=== PATIENT | female | born 1945 | race African-American/Black ===

== ENCOUNTER 2018-12-23 03:19 | Inpatient (IN) | payer MEDICARE, MEDICAID ==
[~2018-12-23] VITALS: Ht 152.4 cm; Wt 120.1 kg
[2018-12-23] MEDS ORDERED: IPRATROPIUM BROM 0.5 MG/2.5ML INH SOL NEB ONE ×2 (05:00→09:00)
[2018-12-23] MEDS ORDERED: ALBUTEROL SULF 2.5 MG/0.5ML(0.5%) NEB SOLN NEB ONE ×2 (05:00→09:00)
[2018-12-23] MEDS ORDERED: SODIUM CHLORIDE 0.9% 1,000 ML IV ONE (05:00)
[2018-12-23] MEDS ORDERED: methylPREDNISolone SOD SUCC 125 MG/2 ML VL IV ONE (05:00)
[2018-12-23] MEDS ORDERED: LEVOFLOXACIN 750MG 150 ML IV ONE (05:00)
[2018-12-23 05:02] LABS: White Blood Cell 7.5 10^3/uL (4.4-10.8)
[2018-12-23 05:04] LABS: Hematocrit 37.6 % (36.0-46.0); Hemoglobin 11.8 g/dL (12.2-16.2); Mean Corpuscular Hemoglobin 23.8 pg (28.0-32.0); Mean Corpuscular Hgb Conc. 31.2 g/dL (32.0-36.0); Mean Corpuscular Volume 76.3 fL (80.0-100.0); Platelet Count (auto) 259 10^3/uL (140-450); Red Blood Cells 4.93 10^6/uL (4.0-5.20); Red Cell Distribution Width 15.9 % (11.8-14.3)
[2018-12-23 05:07] LABS: Basophils % (manual) 0 (0.0-2.0); Blast Cells 0; Metamyelocytes % 0; Myelocytes % 0; Promyelocytes % 0; Reactive Lymphocytes 0
[2018-12-23 05:17] LABS: Partial Thromboplastin Time 28.7 sec (23.64-32.05)
[2018-12-23 05:21] LABS: Alanine Aminotransferase 14 U/L (13-56); Albumin 3.5 g/dL (3.4-5.0); Anion Gap 7 (5-15); Aspartate Aminotransferase 15 U/L (15-37); Blood Urea Nitrogen 11 mg/dL (7-18); Calcium 8.8 mg/dL (8.5-10.1); Carbon Dioxide 25 mmol/L (21-32); Chloride 111 mmol/L (98-107); Glucose 109 mg/dL (74-106); Potassium 3.7 mmol/L (3.5-5.1); Sodium 143 mmol/L (136-145)
[2018-12-23 05:26] LABS: Alkaline Phosphatase 76 U/L (45-117); BUN/Creatinine Ratio 13.3; Bilirubin, Total 0.3 mg/dL (0.2-1.0); GFR African American 87 mL/min; GFR Non-African American 72 mL/min; Total Protein 7.5 g/dL (6.4-8.2)
[2018-12-23 05:37] LABS: Band Neutrophils % (manual) 2; Eosinophils % (manual) 9 (0-7); Lymphocytes % (manual) 36 (10.0-50.0); Monocytes % (manual) 8 (0-12)
[2018-12-23] MEDS ORDERED: DOCUSATE SOD 100 MG CAP PO PRN (09:00)
[2018-12-23] MEDS ORDERED: MORPHINE SULF INJ 2 MG/ML SYRINGE 1ML IV PRN (09:00)
[2018-12-23] MEDS ORDERED: ONDANSETRON HCL 4 MG/2 ML VIAL IV PRN (09:00)
[2018-12-23] MEDS ORDERED: TEMAZEPAM 15 MG CAP PO PRN (09:00)
[2018-12-23] MEDS ORDERED: LACTULOSE 20Gm/30ML SOLN PO PRN (09:30)
[2018-12-23] MEDS: DOXYCYCLINE 100MG/250ML 250 ML IV SCH ×2 (09:46→21:06)
[2018-12-23] MEDS: LORazepam 0.5 MG TAB PO PRN (09:46)
[2018-12-23 10:02] LABS: Urine Bacteria FEW /hpf (None Seen); Urine Blood Negative /uL (Negative); Urine Mucus FEW (None Seen); Urine Specific Gravity 1.022 (1.001-1.035); Urine WBC 1 /hpf (0 - 5)
[2018-12-23] MEDS: amLODIPine BESYLATE 5 MG TAB PO SCH (10:11)
[2018-12-23] MEDS: ENOXAPARIN SOD 40 MG/0.4 ML SYRINGE SC SCH (10:11)
[2018-12-23] MEDS: IPRATROPIUM BROM 0.5 MG/2.5ML INH SOL NEB SCH ×2 (12:00→18:25)
[2018-12-23] MEDS: ALBUTEROL SULF 2.5 MG/0.5ML(0.5%) NEB SOLN NEB SCH ×2 (12:00→18:25)
[2018-12-23 13:38] VITALS: BP 140/88
[2018-12-23] MEDS ORDERED: IPRATROPIUM BROM 0.5 MG/2.5ML INH SOL NEB SCH (14:00)
[2018-12-23] MEDS ORDERED: ALBUTEROL SULF 2.5 MG/0.5ML(0.5%) NEB SOLN NEB SCH (14:00)
[2018-12-23] MEDS: methylPREDNISolone SOD SUCC 40 MG/ML VL IV SCH ×2 (14:10→21:06)
[2018-12-23] MEDS: ALBUTEROL SULF 2.5 MG/0.5ML(0.5%) NEB SOLN NEB PRN ×2 (14:38→21:30)
[2018-12-23 16:40] VITALS: BP 128/87
--- NOTE | 2018-12-23 16:40 | NUR ---
Telemetry admit from ER RONNIE GALLEGOS admitted to Telemetry unit after SBAR received. Patient oriented to CHRIS jack RN, unit, room, bed, and unit policies regarding patient care and visiting hours. The patient is A&Ox4, no signs or symptoms of distress. Patient now on continuous telemetry monitoring, tele box # 15 and telemetry reading on arrival to unit is SINUS TACH @ 105 BPM. Patient placed on bedside oxygen 4L via nasal cannula, weighed by bedscale and encouraged to call if they need something. The patient stated that she has had this type of episode before, during this same time last year, while living with family. The patient had been exposed to fungus growing in her family members bathroom, for which the house had to be vacated and gutted. Notified the patient that I would inform the physician in charge of her care. Educated the patient on POC and use of call light. All questions and concerns addressed, patient verbalized understanding. The patient's call light is within reach and the bed is in the lowest, locked position. Will round hourly and continue to monitor.
[2018-12-23] MEDS: PROMETHAZINE W/CODEINE 5 ML ORAL SYRUP PO PRN ×2 (17:01→21:05)
[2018-12-23 17:11] VITALS: BP 128/87
--- NOTE | 2018-12-23 19:20 | NUR ---
Opening Shift Note Assumed care of patient, awake and alert x4. No S/S of distress/SOB or pain. Patient stated she just received a breathing treatment and feels okay for now. Call light is within reach, bed is in lowest position, side rails up x2. Instructed on POC and to call for assist PRN. All questions and concerns answered, will continue to monitor for changes Q1hr and PRN.
[2018-12-23 22:41] VITALS: BP 102/66
[2018-12-24] MEDS: IPRATROPIUM BROM 0.5 MG/2.5ML INH SOL NEB SCH ×5 (00:22→22:15)
[2018-12-24] MEDS: ALBUTEROL SULF 2.5 MG/0.5ML(0.5%) NEB SOLN NEB SCH ×5 (00:22→22:15)
[2018-12-24 05:30] VITALS: BP 122/74
[2018-12-24] MEDS: methylPREDNISolone SOD SUCC 40 MG/ML VL IV SCH ×3 (05:44→20:52)
[2018-12-24] MEDS: ACETAMINOPHEN 500 MG TAB PO PRN (05:50)
[2018-12-24 06:30] LABS: Basophils # (auto) 0 uL; Basophils % (auto) 0.2 % (0.0-2.0); Eosinophils # (auto) 0 uL; Hematocrit 35.1 % (36.0-46.0); Hemoglobin 11.2 g/dL (12.2-16.2); Lymphocytes # (auto) 1.2 uL; Lymphocytes % (auto) 14.8 % (10.0-50.0); Mean Corpuscular Hgb Conc. 31.8 g/dL (32.0-36.0); Mean Corpuscular Volume 75.6 fL (80.0-100.0); Monocytes # (auto) 0.2 uL; Monocytes % (auto) 2.3 % (0.0-12.0); Neutrophils # (auto) 6.6 uL; Neutrophils % (auto) 82.7 % (37.0-80.0); Nucleated Red Blood Cells % 0.1 %; Platelet Count (auto) 279 10^3/uL (140-450); Red Blood Cells 4.65 10^6/uL (4.0-5.20)
[2018-12-24 06:35] LABS: BUN/Creatinine Ratio 19.5; Potassium 4.6 mmol/L (3.5-5.1)
[2018-12-24] MEDS: PROMETHAZINE W/CODEINE 5 ML ORAL SYRUP PO PRN ×3 (07:59→20:53)
[2018-12-24] MEDS: HYDROcodone-ACET 5/325MG TAB PO PRN ×2 (07:59→22:44)
[2018-12-24 08:00] VITALS: BP 128/87
[2018-12-24 09:03] VITALS: BP 128/88
[2018-12-24] MEDS: DOXYCYCLINE 100MG/250ML 250 ML IV SCH ×2 (09:42→20:53)
[2018-12-24] MEDS: ENOXAPARIN SOD 40 MG/0.4 ML SYRINGE SC SCH (09:42)
[2018-12-24] MEDS: amLODIPine BESYLATE 5 MG TAB PO SCH (09:42)
[2018-12-24] MEDS: ALBUTEROL SULF 2.5 MG/0.5ML(0.5%) NEB SOLN NEB PRN (10:28)
[2018-12-24 13:00] VITALS: BP 103/60
[2018-12-24 16:59] VITALS: BP 116/67
--- NOTE | 2018-12-24 19:20 | NUR ---
Opening Shift Note Assumed care of patient, awake and alert x4. No S/S of distress/SOB or pain. She is receiving oxygen at 2 L/min via nasal cannula with a humidifer, a bedside commode is at bedside. Call light is within reach, side rails up x2, bed is in lowest position. Instructed on POC and to call for assist PRN. All questions and concerns answered, will continue to monitor for changes Q1hr and PRN.
[2018-12-24 22:58] VITALS: BP 118/83
[2018-12-25] MEDS: PROMETHAZINE W/CODEINE 5 ML ORAL SYRUP PO PRN ×4 (02:14→18:55)
[2018-12-25] MEDS: ALBUTEROL SULF 2.5 MG/0.5ML(0.5%) NEB SOLN NEB SCH ×6 (02:15→22:29)
[2018-12-25] MEDS: IPRATROPIUM BROM 0.5 MG/2.5ML INH SOL NEB SCH ×6 (02:15→22:30)
[2018-12-25 05:22] VITALS: BP 113/73
[2018-12-25] MEDS: methylPREDNISolone SOD SUCC 40 MG/ML VL IV SCH ×3 (05:40→22:51)
[2018-12-25 06:13] LABS: Basophils # (auto) 0 uL; Eosinophils # (auto) 0 uL; Nucleated Red Blood Cells % 0.1 %
[2018-12-25 06:15] LABS: Basophils % (auto) 0.2 % (0.0-2.0); Hematocrit 37.4 % (36.0-46.0); Hemoglobin 11.5 g/dL (12.2-16.2); Lymphocytes % (auto) 8.9 % (10.0-50.0); Mean Corpuscular Hemoglobin 23.4 pg (28.0-32.0); Mean Corpuscular Hgb Conc. 30.8 g/dL (32.0-36.0); Monocytes # (auto) 0.3 uL; Monocytes % (auto) 2.7 % (0.0-12.0); Neutrophils % (auto) 88.2 % (37.0-80.0); Platelet Count (auto) 288 10^3/uL (140-450); Red Blood Cells 4.92 10^6/uL (4.0-5.20); Red Cell Distribution Width 16.4 % (11.8-14.3); White Blood Cell 11.3 10^3/uL (4.4-10.8)
[2018-12-25 06:44] LABS: Albumin 3.1 g/dL (3.4-5.0); Calcium 9.2 mg/dL (8.5-10.1); Potassium 4.2 mmol/L (3.5-5.1)
[2018-12-25 06:48] LABS: BUN/Creatinine Ratio 22.5; Bilirubin, Total 0.2 mg/dL (0.2-1.0); Total Protein 7.2 g/dL (6.4-8.2)
--- NOTE | 2018-12-25 07:00 | NUR ---
Opening Shift Note Assumed care of the patient from the maintenance technician 3rd shift RN. The patient is A&Ox4, no signs or symptoms of distress. Educated the patient on POC and patient verbalized understanding. The patient's call light is within reach and bed is in the lowest, locked position. Will round hourly and continue to monitor.
[2018-12-25 08:00] VITALS: BP 144/103
[2018-12-25 09:15] VITALS: BP 134/96
[2018-12-25] MEDS: amLODIPine BESYLATE 5 MG TAB PO SCH (10:57)
[2018-12-25] MEDS: DOXYCYCLINE 100MG/250ML 250 ML IV SCH ×2 (10:57→20:59)
[2018-12-25] MEDS: ENOXAPARIN SOD 40 MG/0.4 ML SYRINGE SC SCH (10:58)
[2018-12-25 13:00] VITALS: BP 116/85
--- NOTE | 2018-12-25 15:41 | NUR ---
RESPIRATORY CULTURE SENT
[2018-12-25] MEDS: ALBUTEROL SULF 2.5 MG/0.5ML(0.5%) NEB SOLN NEB PRN (15:42)
[2018-12-25 17:05] VITALS: BP 111/79
[2018-12-25] MEDS: BUDESONIDE (INHALATION) 0.5 MG/2 ML NEB NEB SCH (18:23)
--- NOTE | 2018-12-25 19:35 | NUR ---
Opening Shift Note Assumed care of patient, awake and alert. No complains of pain, patient on O2 at 4 LPM via nasal cannula, 02 sat at 94%. Instructed on POC and to call for assist PRN, will continue to monitor for changes Q1hr and PRN.
[2018-12-25 22:30] VITALS: BP 132/82
[2018-12-25] MEDS: LORazepam 0.5 MG TAB PO PRN (22:51)
[2018-12-26] MEDS: PROMETHAZINE W/CODEINE 5 ML ORAL SYRUP PO PRN ×3 (02:22→22:53)
[2018-12-26] MEDS: IPRATROPIUM BROM 0.5 MG/2.5ML INH SOL NEB SCH ×6 (02:30→22:54)
[2018-12-26] MEDS: ALBUTEROL SULF 2.5 MG/0.5ML(0.5%) NEB SOLN NEB SCH ×6 (02:30→22:55)
[2018-12-26 05:51] VITALS: BP 134/91
[2018-12-26] MEDS: methylPREDNISolone SOD SUCC 40 MG/ML VL IV SCH ×3 (06:05→21:51)
--- NOTE | 2018-12-26 08:00 | NUR ---
Opening Shift Note Assumed care of patient, awake and alert. No S/S of pain. Audible wheezing, SOB with exertion reported. Instructed on POC and to call for assist PRN, will continue to monitor for changes Q1hr and PRN.
[2018-12-26 09:00] VITALS: BP 132/92
[2018-12-26] MEDS: DOXYCYCLINE 100MG/250ML 250 ML IV SCH ×2 (09:37→21:09)
[2018-12-26] MEDS: amLODIPine BESYLATE 5 MG TAB PO SCH (09:37)
[2018-12-26] MEDS: ENOXAPARIN SOD 40 MG/0.4 ML SYRINGE SC SCH (09:38)
[2018-12-26] MEDS: BUDESONIDE (INHALATION) 0.5 MG/2 ML NEB NEB SCH ×2 (10:03→18:58)
[2018-12-26 13:00] VITALS: BP 104/70
--- NOTE | 2018-12-26 15:36 | NUR ---
Nutrition Assessment Notes please see attached link for complete assessment Est. Needs ABW (71 kg): 0948-5400 kcal (17-20 kcal/kgBW), 71-78 gms pro (1.0-1.1 gms/kgBW). Will continue to monitor pertinent labs and reassess nutrient need prn Addendum: 12/26/18 at [address] Amended: Links added.
[2018-12-26 17:00] VITALS: BP 111/85
--- NOTE | 2018-12-26 18:00 | NUR ---
Improved breathing Patient had Solumedrol this afternoon; reports improved SOB. She said it is easier for her to get to the bathroom and back. Audible wheeze from earlier has significantly decreased at this time.
[2018-12-26] MEDS: ACETAMINOPHEN 500 MG TAB PO PRN (20:04)
[2018-12-26 22:05] VITALS: BP 115/75
[2018-12-27] MEDS: IPRATROPIUM BROM 0.5 MG/2.5ML INH SOL NEB SCH ×6 (02:14→22:13)
[2018-12-27] MEDS: ALBUTEROL SULF 2.5 MG/0.5ML(0.5%) NEB SOLN NEB SCH ×6 (02:14→22:13)
[2018-12-27 05:43] VITALS: BP 138/91
[2018-12-27 05:49] LABS: Basophils # (auto) 0 uL; Basophils % (auto) 0.3 % (0.0-2.0); Eosinophils # (auto) 0 uL; Hemoglobin 11.6 g/dL (12.2-16.2); Lymphocytes # (auto) 1.6 uL; Lymphocytes % (auto) 18.8 % (10.0-50.0); Mean Corpuscular Hemoglobin 23.6 pg (28.0-32.0); Mean Corpuscular Hgb Conc. 31.5 g/dL (32.0-36.0); Mean Corpuscular Volume 74.8 fL (80.0-100.0); Monocytes # (auto) 0.5 uL; Monocytes % (auto) 6.2 % (0.0-12.0); Neutrophils # (auto) 6.3 uL; Neutrophils % (auto) 74.7 % (37.0-80.0); Nucleated Red Blood Cells % 0.3 %; Platelet Count (auto) 287 10^3/uL (140-450); Red Blood Cells 4.94 10^6/uL (4.0-5.20); Red Cell Distribution Width 15.9 % (11.8-14.3); White Blood Cell 8.5 10^3/uL (4.4-10.8)
[2018-12-27] MEDS: methylPREDNISolone SOD SUCC 40 MG/ML VL IV SCH ×3 (06:14→22:13)
[2018-12-27] MEDS: BUDESONIDE (INHALATION) 0.5 MG/2 ML NEB NEB SCH ×2 (06:22→22:13)
[2018-12-27 06:28] LABS: Potassium 4.2 mmol/L (3.5-5.1)
[2018-12-27 06:32] LABS: BUN/Creatinine Ratio 32.9; Magnesium 2.1 mg/dL (1.6-2.6)
--- NOTE | 2018-12-27 08:00 | NUR ---
Opening Shift Note Assumed care of patient, awake, alert, and oriented x4. No S/S of distress/SOB or pain. IV is in left hand 20 gauge and is asymptomatic, intact, patent, and saline locked. IV is in right forearm 22 gauge and is asymptomatic, intact, patent, and saline locked. Bed is locked and in lowest position and call light is within reach. Instructed on POC and to call for assist PRN, and patient verbalized understanding. Will continue to monitor for changes Q1hr and PRN.
[2018-12-27 09:00] VITALS: BP_SYST 123; BP_SYST 124; BP_DIAS 88; BP_DIAS 89
[2018-12-27] MEDS ORDERED: ADENOSINE 82 MG in GIVE UN-DILUTED 0 ML IV ONE (09:00)
--- NOTE | 2018-12-27 09:30 | NUR ---
Patient taken down to stress lab via wheelchair. No distress noted at time of departure.
[2018-12-27] MEDS: DOXYCYCLINE 100MG/250ML 250 ML IV SCH ×2 (09:34→22:13)
--- NOTE | 2018-12-27 09:50 | NUR ---
Patient returned from stress lab via wheelchair. No distress noted at time of arrival.
[2018-12-27] MEDS: amLODIPine BESYLATE 5 MG TAB PO SCH (10:00)
[2018-12-27] MEDS: ENOXAPARIN SOD 40 MG/0.4 ML SYRINGE SC SCH (10:00)
[2018-12-27] MEDS ORDERED: DOBUTamine 1000MCG/ML 100 ML IV ONE (12:06)
[2018-12-27] MEDS ORDERED: ATROPINE SULFATE 1 MG/1 ML VIAL ONE (12:26)
--- NOTE | 2018-12-27 12:30 | NUR ---
Patient taken down to stress lab for second part of stress test via wheelchair; no distress noted at time of departure.
[2018-12-27 13:00] VITALS: BP 123/88
--- NOTE | 2018-12-27 13:58 | NUR ---
Patient returned from stress lab via wheelchair; no distress noted at time of arrival.
[2018-12-27 17:00] VITALS: BP 112/70
--- NOTE | 2018-12-27 18:11 | NUR ---
Respiratory note: AT BEDSIDE FOR MED NEB TX. PT EATING AT THIS TIME. PT AWARE I WILL RETURN TO ADMINISTER MED NEB TX.
[2018-12-27 22:00] VITALS: BP 115/83
--- NOTE | 2018-12-27 22:13 | NUR ---
Respiratory note: PT FOUND ON RA POX90%. ADMINISTERED MED NEB TX. PLACED PT BACK ON 2LPM POST TX. POX 95% ON 2LPM POST TX. Addendum: 12/28/18 at 0123 by Zoey Arnold, RT Amended: Links added.
--- NOTE | 2018-12-27 22:21 | NUR ---
Weighed patient on bed scale; patient weight is 122.0 kg.
--- NOTE | 2018-12-27 22:24 | NUR ---
Respiratory Therapist at bedside for breathing treatment.
--- NOTE | 2018-12-27 22:30 | NUR ---
Taryn Solomon MD, at bedside. No new orders received at this time. Will continue to monitor patient Q1. Addendum: 12/27/18 at 2232 by SYLVAIN PADILLA RN RN Time of above note should read 1300. SB
[2018-12-28] MEDS: ALBUTEROL SULF 2.5 MG/0.5ML(0.5%) NEB SOLN NEB SCH ×6 (02:23→23:12)
[2018-12-28] MEDS: IPRATROPIUM BROM 0.5 MG/2.5ML INH SOL NEB SCH ×6 (02:24→23:12)
[2018-12-28] MEDS: PROMETHAZINE W/CODEINE 5 ML ORAL SYRUP PO PRN ×2 (02:40→20:06)
--- NOTE | 2018-12-28 03:00 | NUR ---
Opening Shift Note Assumed care of patient, awake and alert. No S/S of distress/SOB or pain. Instructed on POC and to call for assist PRN, will continue to monitor for changes Q1hr and PRN.
[2018-12-28 05:46] VITALS: BP 126/98
[2018-12-28] MEDS: methylPREDNISolone SOD SUCC 40 MG/ML VL IV SCH ×2 (06:00→21:48)
[2018-12-28] MEDS: BUDESONIDE (INHALATION) 0.5 MG/2 ML NEB NEB SCH ×2 (07:04→22:00)
[2018-12-28 08:10] VITALS: BP 133/99
[2018-12-28] MEDS: DOXYCYCLINE 100MG/250ML 250 ML IV SCH (08:40)
[2018-12-28] MEDS: amLODIPine BESYLATE 5 MG TAB PO SCH (08:41)
[2018-12-28] MEDS: ENOXAPARIN SOD 40 MG/0.4 ML SYRINGE SC SCH (08:48)
[2018-12-28] MEDS: ALBUTEROL SULF 2.5 MG/0.5ML(0.5%) NEB SOLN NEB PRN (09:06)
--- NOTE | 2018-12-28 10:40 | NUR ---
Respiratory note: AT BEDSIDE FOR SCHEDULED MEDNEB TX. FOUND PT ON ROOM AIR WITH POX 88%. ADMINISTERED MEDNEB TX, PT TOLERATED WELL. PLACED PT ON 1L NC POST-TX, HR 98, RR 18, POX 92%. NO S/S OF RESPIRATORY DISTRESS. WILL RETURN FOR NEXT SCHEDULED TX.
[2018-12-28 12:28] VITALS: BP 130/76
[2018-12-28 17:14] VITALS: BP 123/90
[2018-12-28 21:30] VITALS: BP 111/70
[2018-12-28] MEDS: DOXYCYCLINE 100 MG TAB/CAP PO SCH (21:48)
[2018-12-28] MEDS: HYDROcodone-ACET 5/325MG TAB PO PRN (21:56)
--- NOTE | 2018-12-28 22:29 | NUR ---
IV removal IV to left hand and right forearm DC'd with sterile technique, catheters fully intact. Pressure dressings applied to sites. Patient tolerated procedures well.
--- NOTE | 2018-12-28 22:30 | NUR ---
IV insertion IV access obtained, via clean sterile technique by inserting 22 gauge catheter at left forearm after 1 attempt. IV secured properly. No trauma to site. Patient tolerated procedure well.
[2018-12-29] VITALS (8 sets, daily range): BP systolic 100–159; BP diastolic 72–90
[2018-12-29] MEDS: SODIUM CHLORIDE 0.9% 1,000 ML IV SCH ×3 (00:12→16:25)
[2018-12-29] MEDS: ALBUTEROL SULF 2.5 MG/0.5ML(0.5%) NEB SOLN NEB SCH ×6 (03:13→22:45)
[2018-12-29] MEDS: IPRATROPIUM BROM 0.5 MG/2.5ML INH SOL NEB SCH ×6 (03:13→22:46)
[2018-12-29 06:38] LABS: Hemoglobin 12.9 g/dL (12.2-16.2)
[2018-12-29 06:40] LABS: Hematocrit 41.1 % (36.0-46.0); Mean Corpuscular Hemoglobin 23.7 pg (28.0-32.0); Mean Corpuscular Hgb Conc. 31.4 g/dL (32.0-36.0); Mean Corpuscular Volume 75.4 fL (80.0-100.0); Platelet Count (auto) 314 10^3/uL (140-450); Red Blood Cells 5.45 10^6/uL (4.0-5.20); White Blood Cell 11.5 10^3/uL (4.4-10.8)
[2018-12-29] MEDS: BUDESONIDE (INHALATION) 0.5 MG/2 ML NEB NEB SCH ×2 (06:44→22:45)
[2018-12-29] MEDS ORDERED: ASPirin 325 MG TAB PO ONE (06:45)
--- NOTE | 2018-12-29 06:45 | NUR ---
RN received call from Dr. Downey with new order for x1 aspirin. Order read back and verified.
[2018-12-29] MEDS ORDERED: ASPirin 325 MG TAB ONE (06:46)
[2018-12-29 06:50] LABS: INR 1.06 (0.9-1.15); Partial Thromboplastin Time 24.6 sec (23.64-32.05)
[2018-12-29 06:52] LABS: Basophils % (manual) 0 (0.0-2.0); Blast Cells 0; Eosinophils % (manual) 0 (0-7); Metamyelocytes % 0; Myelocytes % 0; Promyelocytes % 0; Reactive Lymphocytes 0
--- NOTE | 2018-12-29 07:00 | NUR ---
Patient transferred to slab lifting supervisor. Patient comfortable and in no distress at this time.
[2018-12-29 07:05] LABS: % Iron Saturation 28.2 % (15-50)
[2018-12-29 07:06] LABS: BUN/Creatinine Ratio 31.3; Calcium 8.5 mg/dL (8.5-10.1); Potassium 4.3 mmol/L (3.5-5.1)
[2018-12-29] MEDS ORDERED: LIDOCAINE 2%HCL (LOCAL ANESTH.) INJ 20ML MDV ONE (07:18)
[2018-12-29] MEDS ORDERED: IODIXANOL 320MG/ML 100ML BTL IV ONE (07:18)
[2018-12-29] MEDS ORDERED: fentaNYL CITRATE 100 MCG/2 ML VL ONE (07:27)
[2018-12-29] MEDS ORDERED: SODIUM CHL 0.9% 0 ML ONE (07:27)
[2018-12-29] MEDS ORDERED: MIDAZOLAM HCL 1MG/1ML-2 ML VIAL ONE (07:27)
[2018-12-29] MEDS ORDERED: ANGIOMAX 250 MG VIAL IV ONE (07:27)
[2018-12-29] MEDS ORDERED: VERAPAMIL 2.5MG/ML INJ 2ML VIAL IV ONE (07:39)
[2018-12-29 07:45] LABS: Band Neutrophils % (manual) 2; Lymphocytes % (manual) 22 (10.0-50.0); Monocytes % (manual) 6 (0-12)
[2018-12-29] MEDS ORDERED: HEPARIN SODIUM (PORCINE) 5000 UNITS/ML 1ML VIAL ONE (07:54)
--- NOTE | 2018-12-29 09:25 | NUR ---
Pt back at the room from systems testing laboratory technician, lt wrist TR band on, systems testing laboratory technician nurse removed 2 ml of air now, will continue to monitor pt.
--- NOTE | 2018-12-29 09:29 | NUR ---
Opening Shift Note Assumed care of patient, awake and alert from laborer shellfish processing. No S/S of distress/SOB or pain. Instructed on POC and to call for assist PRN, will continue to monitor her wristband according to protocol.
[2018-12-29] MEDS: ENOXAPARIN SOD 40 MG/0.4 ML SYRINGE SC SCH (09:50)
[2018-12-29] MEDS: DOXYCYCLINE 100 MG TAB/CAP PO SCH ×2 (09:54→21:31)
[2018-12-29] MEDS: methylPREDNISolone SOD SUCC 40 MG/ML VL IV SCH ×2 (09:55→21:31)
[2018-12-29] MEDS: amLODIPine BESYLATE 5 MG TAB PO SCH (09:55)
[2018-12-29] MEDS ORDERED: methylPREDNISolone SOD SUCC 40 MG/ML VL IV SCH (10:00)
--- NOTE | 2018-12-29 10:30 | NUR ---
At 1000 removed 2 ml of air, monitor pt for bleeding, noticed bleeding at lt wrist inserted 2 ml of air, will continue to monitor pt.
--- NOTE | 2018-12-29 11:00 | NUR ---
No bleeding noticed at lt wrist, removed 2 ml of air, will continue to monitor pt.
[2018-12-29] MEDS: PROMETHAZINE W/CODEINE 5 ML ORAL SYRUP PO PRN ×3 (11:52→21:34)
--- NOTE | 2018-12-29 12:00 | NUR ---
At 1130 no bleeding noticed to left wrist, removed 2 ml of air from TR band, at 1200 noticed bleeding, insert 2 ml of air back and called manager cardiac cath nurse, manager cardiac cath nurse recommended to monitor pt for 30 min and if no bleeding remove the air 1 ml at a time, will continue to monitor pt.
--- NOTE | 2018-12-29 16:00 | NUR ---
Air from TR band removed 1 ml at a time, monitoring for bleeding, at 1530 all air was removed, monitor pt for bleeding for 30 min, no bleeding noticed, removed TR band at 1600 and applied a gauze with a clear tegaderm dressing, will continue to monitor pt.
--- NOTE | 2018-12-29 22:05 | NUR ---
Care endorsed to Lorraine QUINTANILLA.
--- NOTE | 2018-12-29 22:13 | NUR ---
RECEIVED PT FROM LISE RN POC REVIEWED
[2018-12-30] MEDS: SODIUM CHLORIDE 0.9% 1,000 ML IV SCH (00:37)
[2018-12-30] MEDS: ALBUTEROL SULF 2.5 MG/0.5ML(0.5%) NEB SOLN NEB SCH ×6 (02:18→22:25)
[2018-12-30] MEDS: IPRATROPIUM BROM 0.5 MG/2.5ML INH SOL NEB SCH ×6 (02:18→22:25)
[2018-12-30 06:01] VITALS: BP 136/83
--- NOTE | 2018-12-30 06:37 | NUR ---
AWOKE AMB TO BATHROOM NO C/O PAIN OR DISCOMFORT, RESP EVEN AND UNLABORED
--- NOTE | 2018-12-30 07:06 | NUR ---
REPORT GIVEN TO AM NURSE POC REVIEWED
[2018-12-30] MEDS: BUDESONIDE (INHALATION) 0.5 MG/2 ML NEB NEB SCH ×2 (07:07→22:25)
--- NOTE | 2018-12-30 07:30 | NUR ---
OPENING SHIFT NOTE RECEIVED REPORT FROM [facility] NURSE, ASSUMED CARE OF PATIENT. PATIENT IS A&OX4 AND DENIES ANY C/O PAIN OR DISTRESS AT THIS TIME. PATIENT BED IS IN LOW POSITION, BRAKES APPLIED, BED RAILS UP X2 AND CALL LIGHT WITHIN REACH. EDUCATED PATIENT ON POC AND CALL LIGHT USE PRN, PATIENT VERBALIZED UNDERSTANDING. CONTINUING TO MONITOR Q1 HR AND PRN
[2018-12-30] MEDS: amLODIPine BESYLATE 5 MG TAB PO SCH (10:00)
--- NOTE | 2018-12-30 10:00 | NUR ---
BP MEDS PATIENT ADVISED ME THAT SHE TOOK HER HOME BP MEDICATIONS. PATIENT EDUCATED ON POLICY FOR HOME MEDS AND STATED DAUGHTER WILL TAKE THEM HOME. PT HANNAH HELD DUE TO BP MEDS ALREADY TAKEN
[2018-12-30] MEDS ORDERED: AMLO5TAB15 PO (10:21)
[2018-12-30] MEDS ORDERED: PANT40TA2 PO (10:21)
[2018-12-30] MEDS ORDERED: BENA40TA7 PO (10:21)
[2018-12-30] MEDS: DOXYCYCLINE 100 MG TAB/CAP PO SCH ×2 (10:22→21:59)
[2018-12-30] MEDS: ENOXAPARIN SOD 40 MG/0.4 ML SYRINGE SC SCH (10:22)
[2018-12-30] MEDS: methylPREDNISolone SOD SUCC 40 MG/ML VL IV SCH (10:22)
[2018-12-30 17:00] VITALS: BP 129/95
[2018-12-30] MEDS: PROMETHAZINE W/CODEINE 5 ML ORAL SYRUP PO PRN ×2 (18:00→22:05)
--- NOTE | 2018-12-30 18:15 | NUR ---
AT BEDSIDE DR ALLAN FOR PULMONARY AT BEDSIDE FOR CONSULT
--- NOTE | 2018-12-30 19:26 | NUR ---
Opening Shift Note Assumed care of patient, awake and alert x 4. No S/S of distress/SOB or pain. Bed is in lowest position and locked. Call light within reach. Board updated. Patient on 2 l/min NC. Instructed on POC and to call for assist PRN, will continue to monitor for changes Q1hr and PRN.
[2018-12-30 21:47] VITALS: BP 107/70
[2018-12-30] MEDS ORDERED: methylPREDNISolone SOD SUCC 40 MG/ML VL IV SCH (22:00)
[2018-12-31] MEDS: methylPREDNISolone SOD SUCC 40 MG/ML VL IV SCH ×5 (00:05→23:51)
[2018-12-31] MEDS: ALBUTEROL SULF 2.5 MG/0.5ML(0.5%) NEB SOLN NEB SCH ×6 (02:17→22:29)
[2018-12-31] MEDS: IPRATROPIUM BROM 0.5 MG/2.5ML INH SOL NEB SCH ×6 (02:17→22:29)
[2018-12-31] MEDS: PROMETHAZINE W/CODEINE 5 ML ORAL SYRUP PO PRN ×4 (03:22→21:02)
[2018-12-31 04:59] VITALS: BP 89/50
--- NOTE | 2018-12-31 07:30 | NUR ---
OPENING SHIFT NOTE RECEIVED REPORT FROM [facility] NURSE, ASSUMED CARE OF PATIENT. PATIENT IS A&OX4, ON 2L NC, AND DENIES ANY C/O PAIN OR DISTRESS AT THIS TIME. PATIENT BED IS IN LOW POSITION, BRAKES APPLIED, BED RAILS UP X2 AND CALL LIGHT WITHIN REACH. EDUCATED PATIENT ON POC AND CALL LIGHT USE PRN, PATIENT VERBALIZED UNDERSTANDING. CONTINUING TO MONITOR Q1 HR AND PRN
[2018-12-31 08:00] VITALS: BP 117/75
[2018-12-31] MEDS: amLODIPine BESYLATE 5 MG TAB PO SCH (09:37)
[2018-12-31] MEDS: ENOXAPARIN SOD 40 MG/0.4 ML SYRINGE SC SCH (09:37)
[2018-12-31] MEDS: DOXYCYCLINE 100 MG TAB/CAP PO SCH ×2 (09:38→21:02)
[2018-12-31] MEDS: BUDESONIDE (INHALATION) 0.5 MG/2 ML NEB NEB SCH ×2 (10:05→19:15)
[2018-12-31 12:00] VITALS: BP 123/84
--- NOTE | 2018-12-31 16:36 | NUR ---
PATIENT VOMITED X2 PATIENT SELF STATES SHE COUGHED SO HARD IT CAUSED HER TO VOMIT TWICE. VOMITUS IS NOT VISUALIZED BY THIS NURSE. ADVISED PT PRN COUGH SYRUP WILL BE ADMINISTERED AND TO NOTIFY OF ANY MORE VOMITING
[2018-12-31 17:01] VITALS: BP 130/85
--- NOTE | 2018-12-31 18:11 | NUR ---
received update spoke with dr ramírez regarding poc for patient
[2018-12-31 21:45] VITALS: BP 131/87
[2019-01-01] MEDS: ALBUTEROL SULF 2.5 MG/0.5ML(0.5%) NEB SOLN NEB SCH ×4 (02:32→14:44)
[2019-01-01] MEDS: IPRATROPIUM BROM 0.5 MG/2.5ML INH SOL NEB SCH ×4 (02:32→14:44)
[2019-01-01 04:43] VITALS: BP 142/96
[2019-01-01] MEDS: PROMETHAZINE W/CODEINE 5 ML ORAL SYRUP PO PRN ×2 (05:41→10:09)
[2019-01-01] MEDS: methylPREDNISolone SOD SUCC 40 MG/ML VL IV SCH ×2 (05:41→11:34)
[2019-01-01] MEDS: BUDESONIDE (INHALATION) 0.5 MG/2 ML NEB NEB SCH (05:54)
--- NOTE | 2019-01-01 07:50 | NUR ---
OPENING NOTE ASSUMED CARE OF PT. ALERT AND ORIENTED. NO SIGNS OF SOB/DISTRESS NOTED. DENIES ANY PAIN. BED SET TO LOWEST POSITION/LOCKED. BEDSIDE RAILS UP X2. CALL LIGHT WITHIN REACH. INSTRUCTED PT TO CALL FOR ASSISTANCE. DISCUSSED POC. WILL CONTINUE TO MONITOR Q1HR AND PRN.
[2019-01-01 08:00] VITALS: BP 121/77
[2019-01-01] MEDS: DOXYCYCLINE 100 MG TAB/CAP PO SCH (10:02)
[2019-01-01] MEDS: ENOXAPARIN SOD 40 MG/0.4 ML SYRINGE SC SCH (10:02)
[2019-01-01] MEDS: amLODIPine BESYLATE 5 MG TAB PO SCH (10:03)
[2019-01-01 12:00] VITALS: BP 102/75
--- NOTE | 2019-01-01 15:43 | NUR ---
Discharge instructions given as ordered. Encourage to follow up with PMD as instructed. All questions and concerns addressed. Patient verbalized understanding. IV removed with catheter intact, pressure dressing applied. Telemetry unit returned to ICU.
--- NOTE | 2019-01-01 17:48 | NUR ---
Patient taken to vehicle via wheelchair with all personal belongings, accompanied by staff and family member. No distress noted at time of departure.
== END 2019-01-01 17:48 | disposition home or self-care (01) | DRG 191 ==
LOC: ER 03:19 → EDBD 03:19 → TELE 03:20 → TELE-WESTW 17:01
PROVIDERS: ADMIT Nurse Practitioner Family; ATTEND Internal Medicine Nephrology
PROC: 4A023N7 Measurement of Cardiac Sampling and Pressure, Left Heart, Percutaneous Approach (ICD-10-PCS; principal; 2018-12-29)
PROC: B2111ZZ Fluoroscopy of Multiple Coronary Arteries using Low Osmolar Contrast (ICD-10-PCS; 2018-12-29)
DX: I25.10 Atherosclerotic heart disease of native coronary artery without angina pectoris (principal); J96.21 Acute and chronic respiratory failure with hypoxia; E87.0 Hyperosmolality and hypernatremia; E66.01 Morbid (severe) obesity due to excess calories; I08.1 Rheumatic disorders of both mitral and tricuspid valves; E88.09 Other disorders of plasma-protein metabolism, not elsewhere classified; Z99.81 Dependence on supplemental oxygen; J45.901 Unspecified asthma with (acute) exacerbation; Z68.43 Body mass index [BMI] 50.0-59.9, adult; E11.9 Type 2 diabetes mellitus without complications; D50.9 Iron deficiency anemia, unspecified; J44.0 Chronic obstructive pulmonary disease with (acute) lower respiratory infection; J44.1 Chronic obstructive pulmonary disease with (acute) exacerbation; J20.9 Acute bronchitis, unspecified; D63.8 Anemia in other chronic diseases classified elsewhere; B96.5 Pseudomonas (aeruginosa) (mallei) (pseudomallei) as the cause of diseases classified elsewhere; K21.9 Gastro-esophageal reflux disease without esophagitis; I10 Essential (primary) hypertension; F41.9 Anxiety disorder, unspecified; I49.3 Ventricular premature depolarization; I70.0 Atherosclerosis of aorta; F17.210 Nicotine dependence, cigarettes, uncomplicated; Z83.3 Family history of diabetes mellitus; Z79.899 Other long term (current) drug therapy
CPT/HCPCS: 36415; 36600; 71045; 71046; 78452; 80048; 80053; 81001; 82805; 83540; 83550; 83605; 83735; 83880; 84484; 85007; 85025; 85027; 85379; 85610; 85730; 86850; 86900; 86901; 87040; 87070; 87077; 87186; 87205; 93005; 93017; 93306; 93458; 94640; 96365; 96372; 96375; 99152; 99153; G0378; J0153; J0461; J1956; J2250; J3490; Q9967